=== PATIENT | male | born 1950 | race Two or more races ===

== ENCOUNTER 2020-12-13 10:16 | Day surgery (SDC) | payer OTHER ==
[~2020-12-13 10:16] MED LIST: LIPOFEN50 MG PO; TAMS0.4C PO; TOPROL XL25 M1 PO; ZESTRIL10 M1 PO
[2020-12-13] MEDS ORDERED: PERCOCET 5-3251 EACH PO (12:30)
== END 2020-12-13 20:05 | disposition home or self-care (01) ==
LOC: CIR.AMB 10:16
PROVIDERS: ATTEND Surgery
DX: K64.4 Residual hemorrhoidal skin tags (principal); K64.8 Other hemorrhoids; Z20.822 Contact with and (suspected) exposure to COVID-19

== ENCOUNTER 2022-11-04 12:41 | Emergency (ER) | payer OTHER ==
[~2022-11-04] VITALS: Ht 172.7 cm; Wt 86.2 kg
[~2022-11-04 12:41] MED LIST changes: +PERCOCET 5-3251 EACH PO
== END 2022-11-04 19:58 | disposition home or self-care (01) ==
LOC: ER 12:41
PROVIDERS: Emergency Medicine
DX: S00.03XA Contusion of scalp, initial encounter (principal); R55 Syncope and collapse; J32.0 Chronic maxillary sinusitis; Z20.822 Contact with and (suspected) exposure to COVID-19; Z09 Encounter for follow-up examination after completed treatment for conditions other than malignant neoplasm; Z86.16 Personal history of COVID-19; S00.83XA Contusion of other part of head, initial encounter